=== PATIENT | male | born 1980 | race Caucasian/White ===

== ENCOUNTER 2018-08-21 16:18 | Inpatient (IN) | payer OTHER ==
[2018-08-21 21:51] VITALS: BMI 31.4
--- NOTE | 2018-08-21 22:10 | HP ---
"COWS - Scale Resting Pulse: 1= [place] 81-100 Sweatin= Beads of Sweat on Face Restless Observation: 0= Sits Still Pupil Size: 1= Pupils >than Normal Bone or Joint Aches: 4=Acute Joint/Muscle Pain Runny Nose/ Eye Tearin= Nasal Congestion GI Upset > 30mins: 2= Nausea/Diarrhea Tremor Observation: 1= Tremor Unity, Not Seen Yawning Observation: 0= None Anxiety or Irritability: 2=Irritable/Anxious Goose Flesh Skin: 0=Smooth Skin COWS Score: 15 CIWA Score Nausea/Vomitin-Mild Nausea/No Vomiting Muscle Tremors: 1-None Visible, but Unity Anxiety: 4-Mod. Anxious/Guarded Agitation: 1-Slight > Activity Paroxysmal Sweats: 4-Forehead w/Sweat Beads Orientation: 3-Disoriented Date>2 days Tacttile Disturbances: 0-None Auditory Disturbances: 0-None Visual Disturbances: 2-Mild Sensitivity Headache: 4-Moderately Severe CIWA-Ar Total Score: 20 - Admission Criteria OASAS Guidelines: Admission for Medically Managed Detox: Requires at least one of the followin. CIWA greater than 12 2. Seizures within the past 24 hours 3. Delirium tremens within the past 24 hours 4. Hallucinations within the past 24 hours 5. Acute intervention needed for co occurring medical disorder 6. Acute intervention needed for co occurring psychiatric disorder 7. Severe withdrawal that cannot be handled at a lower level of care (continued vomiting, continued diarrhea, abnormal vital signs) requiring intravenous medication and/or fluids 8. Patient presents the following: CIWA greater than 12 Admission Criteria Met: Admission criteria met Admission ROS [facility] Chief Complaint: c/o withdrawal sx's. seeking detox Allergies/Adverse Reactions: Allergies Allergy/AdvReac Type Severity Reaction Status Date / Time No Known Allergies Allergy Verified 08/21/18 21:44 History of Present Illness: 37 Y.O. WITH OPIOID AND ALCOHOL DEPENDENCE HERE FOR DETOX. CLIENT IS REFERRED BY [facility] AFTER HE AMA AFTER 1 DAY STAY. CLIENT REPORTS HE WAS ATTEMPTING DETOX FROM OPIOID WITH SUBOXONE OUTPATIENT BUT CONT TO HAVE MODERATE WITHDRAWAL SX'S AFTER 4 DAYS OF TAPER THAT ENDED ON 08/11/2018. HE ATTEMPTED DETOX AT [facility] WHERE HE WAS GIVEN A BENZO AND SUBOXONE FOR TXMENT BUT AMA AFTER A DAY, 2 DAYS AGO FOR PERSONAL REASONS. HE PRESENTS TODAY WITH COMPLAINTS OF WITHDRAWAL SX'S. COWS 15/CIWA 20. DENIES HX/O DRUG OVERDOSE, SEIZURES, AVH, SI/HI. LIVES IN A RESIDENTIAL, UNEMPLOYED, DENIES LEGALS This report was requested by: Chantal Wiseman | Reference #: [id number] You have not added a HIEN number. Keeping your HIEN number(s) up to date on the My HIEN Numbers page will enable the separation of your prescriptions from others ' in the search results. Others' Prescriptions Patient Name: Charlie Hewitt Date: 1980 Address: [address] [place] [address] [place] [address] Sex: Male Rx Written Rx Dispensed Drug Quantity Days Supply Prescriber Name 08/07/2018 08/07/2018 buprenorphine-naloxone 2-0.5 mg sl tablet 12 4 Rene Sanabria Exam Limitations: No Limitations - Ebola screening Have you traveled outside of the country in the last 21 days: No (N) Have you had contact with anyone from an Ebola affected area: No Do you have a fever: No - Review of Systems Constitutional: Chills, Malaise, Night Sweats, Changes in sleep EENT: reports: Dental Problems (MISSING TEETH/DENTURES), Other (CORRECTIVE LENSES) Respiratory: reports: No Symptoms reported Cardiac: reports: No Symptoms Reported GI: reports: Diarrhea, Nausea : reports: No Symptoms Reported Musculoskeletal: reports: Back Pain Integumentary: reports: Flushing, Sweating Neuro: reports: Headache, Tremors (FELT) Endocrine: reports: No Symptoms Reported Hematology: reports: No Symptoms Reported Psychiatric: reports: Anxious, Depressed Other Systems: Reviewed and Negative Patient History - Patient Medical History Hx Anemia: No Hx Asthma: No Hx Chronic Obstructive Pulmonary Disease (COPD): No Hx Cancer: No Hx Cardiac Disorders: No Hx Congestive Heart Failure: No Hx Hypertension: No Hx Hypercholesterolemia: No Hx Pacemaker: No HX Cerebrovascular Accident: No Hx Seizures: No Hx Dementia: No Hx Diabetes: No Hx Gastrointestinal Disorders: No Hx Liver Disease: No Hx Genitourinary Disorders: No Hx Sexually Transmitted Disorders: No Hx Renal Disease (ESRD): No Hx Thyroid Disease: No Hx Human Immunodeficiency Virus (HIV): No Hx Hepatitis C: No Hx Depression: Yes Hx Suicide Attempt: No Hx Bipolar Disorder: No Hx Schizophrenia: No Other Medical History: DENIES - Patient Surgical History Past Surgical History: No - PPD History Previous Implant?: Yes Documented Results: Negative w/proof Implanted On Prior [facility] Admission?: No PPD to be Administered?: Yes - Smoking Cessation Smoking history: Current every day smoker Have you smoked in the past 12 months: Yes Aproximately how many cigarettes per day: 10 Cigars Per Day: 0 Hx Chewing Tobacco Use: No Initiated information on smoking cessation: Yes 'Breaking Loose' booklet given: 08/21/18 - Substance & Tx. History Hx Alcohol Use: Yes Hx Substance Use: Yes Substance Use Type: Alcohol, Opiates Hx Substance Use Treatment: Yes ([facility]) - Substances abused Alcohol Substance route: Oral Frequency: Daily Amount used: 2 quarts vodka Age of first use: 17 Date of last use: 08/21/18 K2/Spice Substance route: Smoking Frequency: Daily Amount used: 5 joints Age of first use: 36 Date of last use: 08/21/18 Marijuana/Hashish Substance route: Smoking Frequency: Daily Amount used: 1 joint Age of first use: 17 Date of last use: 08/21/18 Buprenorphine Other (specify): STREET Substance route: Oral Frequency: 3-6 times per week Amount used: 8MG Age of first use: 27 Date of last use: 08/19/18 Family Disease History - Family Disease History Family History: Denies Admission Physical Exam [facility] - Vital Signs Vital Signs: Vital Signs - 24 hr 08/21/18 21:47 Temperature 97.7 F Pulse Rate 90 Respiratory 18 Rate Blood Pressure 143/90 - Physical General Appearance: Yes: Moderate Distress, Tremorous (felt), Sweating, Anxious HEENTM: Yes: EOMI, Normocephalic, Normal Voice, CHARY (pupils 4mm), Pharynx Normal Respiratory: Yes: Chest Non-Tender, Lungs Clear, Normal Breath Sounds, No Respiratory Distress, No Accessory Muscle Use Neck: Yes: No masses,lesions,Nodules, Supple, Trachea in good position Breast: Yes: Breast Exam Deferred Cardiology: Yes: Regular Rhythm, Regular Rate, S1, S2 Abdominal: Yes: Normal Bowel Sounds, Non Tender, Soft Genitourinary: Yes: Within Normal Limits Back: Yes: Normal Inspection Musculoskeletal: Yes: full range of Motion, Gait Steady Extremities: Yes: Tremors (felt), Other (solied finger nails and beds) Neurological: Yes: Alert, Motor Strength 5/5, Depressed Affect Integumentary: Yes: Clammy, Moist Lymphatic: Yes: Within Normal Limits - Diagnostic (1) Alcohol dependence with uncomplicated withdrawal Current Visit: Yes Status: Acute (2) Opioid dependence with withdrawal Current Visit: Yes Status: Acute (3) Cannabis dependence, uncomplicated Current Visit: Yes Status: Acute (4) Nicotine dependence Current Visit: Yes Status: Acute (5) Substance induced mood disorder Current Visit: Yes Status: Acute (6) Homeless Current Visit: Yes Status: Acute Cleared for Admission S - Detox or Rehab [facility] Level of Care: Medically Managed Detox Regimen/Protocol: Librium, Suboxone Claeared for Rehab Admission: No Breathalyzer - Breathalyzer Breathalyzer: 0 Urine Drug Screen - Test Device Lot number: [id number] Expiration date: 04/03/20 - Control Is test valid?: Yes - Results Drug screen NEGATIVE: No Urine drug screen results: THC-Marijuana, BZO-Benzodiazepines, BUP-Suboxone Inpatient Rehab Admission - Rehab Decision to Admit Inpatient rehab admission?: No"
[2018-08-21] MEDS ORDERED: MAGNESIUM CITRATE 300 ML BOTTLE PO PRN (22:16)
[2018-08-21] MEDS ORDERED: MAGNESIUM HYDROX 2400MG/30ML ORAL SUSPENSION 30 ML CUP PO PRN (22:16)
[2018-08-21] MEDS ORDERED: IBUPROFEN 400 MG TABLET (FP) PO PRN ×2 (22:16)
[2018-08-21] MEDS ORDERED: DICYCLOMINE HCL 10 MG CAPSULE PO PRN (22:16)
[2018-08-21] MEDS ORDERED: MENTHOL/PHENOL 1 EACH UD MM PRN (22:16)
[2018-08-21] MEDS ORDERED: ONDANSETRON *ODT* 4 MG TABLET SL PRN (22:16)
[2018-08-21] MEDS ORDERED: guaiFENesin 200 MG/10 ML 10 ML UNIT-DOSE CUPS PO PRN (22:16)
[2018-08-21] MEDS ORDERED: P-EPHED 60MG/TRIPROLIDI 2.5MG TABLET PO PRN (22:16)
[2018-08-21] MEDS ORDERED: MAG HYDROX/AL HYDROX/SIMETH 30 ML UNIT-DOSE CUP PO PRN (22:16)
[2018-08-21] MEDS ORDERED: ACETAMINOPHEN 325 MG TABLET (FP) PO PRN ×2 (22:16)
[2018-08-21] MEDS ORDERED: NICOTINE POLACRILEX 2 MG GUM BUC PRN (22:16)
[2018-08-21] MEDS ORDERED: BISMUTH SUBSALICYLATE 524 MG/30 ML UD PO PRN (22:16)
[2018-08-21] MEDS ORDERED: BUPRENORPHINE/NALOXONE 2 MG/0.5 MG FILM PACKET SL ONE (22:45)
[2018-08-21] MEDS: chlordiazePOXIDE HCL 25 MG CAPSULE PO SCH (22:58)
[2018-08-21] MEDS: MELATONIN 5 MG TABLETS PO PRN (22:59)
[2018-08-21] MEDS ORDERED: BUPRENORPHINE/NALOXONE 2 MG/0.5 MG FILM PACKET SL SCH (23:00)
[2018-08-22] MEDS: chlordiazePOXIDE HCL 25 MG CAPSULE PO SCH ×4 (05:37→22:33)
[2018-08-22] MEDS: BUPRENORPHINE/NALOXONE 2 MG/0.5 MG FILM PACKET SL SCH ×3 (05:37→22:33)
[2018-08-22] MEDS: PRENATAL VITAMINS W/ FOLIC ACID TABLET (FP) PO SCH (10:15)
[2018-08-22] MEDS: NICOTINE 21 MG/24 HOURS TOPICAL PATCH TD SCH (10:15)
[2018-08-22 10:16] LABS: HEMATOCRIT 37.1 % (35.4-49); HEMOGLOBIN 12.4 GM/dL (11.7-16.9); MCH 30.4 pg (25.7-33.7); MCHC 33.3 g/dl (32.0-35.9); MEAN CELL VOLUME 91.1 fl (80-96); MEAN PLT VOLUME 9.2 fl (7.5-11.1); PLATELET COUNT 210 K/MM3 (134-434); RBC 4.07 M/mm3 (4.00-5.60); WHITE BLOOD COUNT 6.5 K/mm3 (4.0-10.0)
[2018-08-22 10:27] LABS: ALBUMIN 3.4 g/dl (3.4-5.0); ALK PHOS 92 U/L (45-117); ANION GAP 7 MMOL/L (8-16); BILIRUBIN,TOTAL < 0.1 mg/dL (0.2-1); BLOOD UREA NITROGEN 13 mg/dL (7-18); CALCIUM 9.1 mg/dL (8.5-10.1); CHLORIDE 109 mmol/L (98-107); CO2 25 mmol/L (21-32); CREATININE 0.9 mg/dL (0.55-1.3); GLUCOSE,RANDOM 105 mg/dL (74-106); SGOT/AST 14 U/L (15-37); SGPT/ALT 25 U/L (13-61); SODIUM 140 mmol/L (136-145); TOT PROT 6.3 g/dl (6.4-8.2)
[2018-08-22] MEDS: METHOCARBAMOL 500 MG TABLET PO PRN ×2 (11:39→17:25)
[2018-08-22] MEDS: GABAPENTIN 300 MG CAPSULE (FP) PO SCH ×2 (13:05→22:32)
--- NOTE | 2018-08-22 13:45 | CONSULT ---
[facility] Psychiatric Consult - Data Date of interview: 08/22/18 Admission source: [facility] Identifying data: First admission to [facility] for this 37 y/o male referred from [facility] for detoxification (alcohol, marihuana (K2), street suboxone). Examined at [address] [place] [address]. Patient is single, a father of one, homeless, unemployed and supported by relatives. Substance Abuse History: Confirmed by the patient in this interview. Details in current [facility] report : Smoking history: Current every day smoker. Have you smoked in the past 12 months: Yes. Aproximately how many cigarettes per day: 10. Cigars Per Day: 0. Hx Chewing Tobacco Use: No. Initiated information on smoking cessation: Yes. 'Breaking Loose' booklet given: 08/21/18. - Substance & Tx. History. Hx Alcohol Use: Yes. Hx Substance Use: Yes. Substance Use Type : Alcohol, Opiates. Hx Substance Use Treatment: Yes ([facility]). - Substances abused. Alcohol. Substance route: Oral. Frequency: Daily. Amount used: 2 quarts vodka. Age of first use: 17. Date of last use: . K2/Spice. Substance route: Smoking. Frequency: Daily. Amount used: 5 joints. Age of first use: 36. Date of last use: 08/21/18. Marijuana/ Hashish. Substance route: Smoking. Frequency: Daily. Amount used: 1 joint. Age of first use: 17. Date of last use: 08/21/18. Buprenorphine. Other ( specify): STREET. Substance route: Oral. Frequency: 3-6 times per week. Amount used: 8MG. Age of first use: 27. Date of last use: 08/19/18 Medical History: Patient endorses good general health. Noted history of chronic lumbar pain. Psychiatric History: Patient admits to a history of two psychiatric hospitalizations ([facility]). Psychiatric disturbances started years ago (ADHD) but first psychiatric hospitalization occurred in 2013. Mr Hewitt endorses the diagnoses of MDD and Anxiety Disorder. Medications consist of wellbutrin XL (not found in reconciliation) + gabapentin + buspar + seroquel + trazodone (confirmed by pharmacy claims of 08/07/18 at [facility] # [id number]). These medications were prescribed to patient during his recent admission to the psychiatric inpatient service at [facility] (discharged two weeks ago). Patient has been referred to the [facility] clinic, in [place], for psychiatric OPD services. Denies history of suicide attempts. Physical/Sexual Abuse/Trauma History: Patient denies history of abuse. Additional Comment: Urine drug screen results: THC-Marijuana, BZO- Benzodiazepines, BUP-Suboxone. Noted. Mental Status Exam - Mental Status Exam Alert and Oriented to: Time, Place, Person Cognitive Function: Good Patient Appearance: Unkempt, Disheveled (overweight) Mood: Sad, Nervous, Withdrawn, Anxious Affect: Mood Congruent, Constricted Patient Behavior: Fatigued, Cooperative Speech Pattern: Clear Voice Loudness: Normal Thought Process: Goal Oriented Thought Disorder: Not Present Hallucinations: Denies Suicidal Ideation: Denies Homicidal Ideation: Denies Insight/Judgement: Poor Sleep: Poorly, Difficulty falling asleep Appetite: Good Muscle strength/Tone: Normal Gait/Station: Normal Psychiatric Findings - Problem List ([place] 1, 2,3) (1) Alcohol dependence with uncomplicated withdrawal Current Visit: Yes Status: Acute (2) Opioid dependence with withdrawal Current Visit: Yes Status: Acute (3) Cannabis dependence, uncomplicated Current Visit: Yes Status: Chronic (4) Nicotine dependence Current Visit: Yes Status: Chronic (5) Substance induced mood disorder Current Visit: Yes Status: Acute (6) History of depression Current Visit: Yes Status: Chronic (7) Insomnia Current Visit: Yes Status: Chronic (8) Non-compliance Current Visit: Yes Status: Chronic - Initial Treatment Plan Initial Treatment Plan: Psychoeducation. Sleep hygiene. Detoxification in progress. Support. Medications reconciled : trazodone 150 mg po hs + gabapentin 600 mg po tid. Side effects/benefits of these drugs are discussed with patient. Informed of risk of priapism, sedation, metabolic syndrome, involuntary movement disorders and orthostasis. Mr Hewitt gave his verbal consent for inclusion of these formulations in the current regimen. Observation.
[2018-08-22] MEDS ORDERED: PATIENT'S OWN MEDICATION (NON-FORMULARY) (Gabapentin [Gabapentin] 600 MG) PO SCH (14:00)
--- NOTE | 2018-08-22 14:28 | EKG ---
Test Reason : Blood Pressure : / mmHG Vent. Rate : 071 BPM Atrial Rate : 071 BPM P-R Int : 156 ms QRS Dur : 100 ms QT Int : 400 ms P-R-T Axes : 045 042 032 degrees QTc Int : 434 ms NORMAL SINUS RHYTHM NORMAL ECG NO PREVIOUS ECGS AVAILABLE Confirmed by MD AIDAN, JOEL ([id number]) on 08/22/2018 2:28:15 PM Referred By: Confirmed By:JOEL BERMUDEZ MD
[2018-08-22] MEDS: chlordiazePOXIDE HCL 25 MG CAPSULE PO PRN ×2 (15:15→19:46)
--- NOTE | 2018-08-22 16:51 | PN ---
S CIWA - CIWA Score Nausea/Vomitin Muscle Tremors: 3 Anxiety: 2 Agitation: 0-Normal Activity Paroxysmal Sweats: 3 Orientation: 0-Oriented Tacttile Disturbances: 0-None Auditory Disturbances: 0-None Visual Disturbances: 1-Very Mild Sensitivity Headache: 3-Moderate CIWA-Ar Total Score: 15 [facility] COWS - Scale Resting Pulse: 1= [place] 81-100 Sweatin= Chills/Flushing Restless Observation: 0= Sits Still Pupil Size: 0= Normal to Room Light Bone or Joint Aches: 2= Severe Diffuse Aches Runny Nose/ Eye Tearin= None GI Upset > 30mins: 2= Nausea/Diarrhea Tremor Observation of Outstretched Hands: 2= Slight Tremor Visible Yawning Observation: 1= 1-2x During Session Anxiety or Irritability: 2=Irritable/Anxious Goose Flesh Skin: 3=Piloe[place] COWS Score: 14 [facility] Progress Note (SOAP) Subjective: Sweating, H/A, Interrupted Sleep, Body Aches, Tremors, Nausea. Objective: PATIENT A & O X 3, OBSERVED AMBULATING ON UNIT UNASSISTED. IN NO ACUTE DISTRESS. 08/22/18 16:50 Vital Signs Temperature 97.2 F L 08/22/18 13:45 Pulse Rate 86 08/22/18 13:45 Respiratory Rate 18 08/22/18 13:45 Blood Pressure 126/85 08/22/18 13:45 O2 Sat by Pulse Oximetry (%) Laboratory Tests 08/22/18 08/22/18 07:48 07:48 WBC 6.5 RBC 4.07 Hgb 12.4 Hct 37.1 MCV 91.1 MCH 30.4 MCHC 33.3 RDW 13.0 Plt Count 210 MPV 9.2 Sodium 140 Potassium 4.0 Chloride 109 H Carbon Dioxide 25 Anion Gap 7 L BUN 13 Creatinine 0.9 Creat Clearance w eGFR 96.03 Random Glucose 105 Calcium 9.1 Total Bilirubin < 0.1 L AST 14 L ALT 25 Alkaline Phosphatase 92 Total Protein 6.3 L Albumin 3.4 LABS NOTED. RPR RESULT PENDING. 08/22/18 16:51 Assessment: 08/22/18 16:51 WITHDRAWAL SYMPTOMS. Plan: CONTINUE DETOX.
[2018-08-22] MEDS: hydrOXYzine PAMOATE 25 MG CAPSULE (FP) PO PRN ×2 (17:08→22:34)
[2018-08-22] MEDS ORDERED: THIAMINE HCL 100 MG TABLET (FP) PO SCH (22:00)
[2018-08-22] MEDS ORDERED: traZODone HCL 50 MG TABLET (FP) PO SCH (22:00)
[2018-08-22] MEDS: MELATONIN 5 MG TABLETS PO PRN (22:33)
[2018-08-23] MEDS: chlordiazePOXIDE HCL 25 MG CAPSULE PO SCH ×2 (05:49→10:09)
[2018-08-23] MEDS: GABAPENTIN 300 MG CAPSULE (FP) PO SCH (05:49)
[2018-08-23] MEDS ORDERED: BUPRENORPHINE/NALOXONE 2 MG/0.5 MG FILM PACKET SL SCH (06:00)
[2018-08-23] MEDS: hydrOXYzine PAMOATE 25 MG CAPSULE (FP) PO PRN (07:49)
[2018-08-23 09:12] VITALS: BP 137/93; PULSE 89; TEMP 96.8
[2018-08-23] MEDS: NICOTINE 21 MG/24 HOURS TOPICAL PATCH TD SCH (10:09)
[2018-08-23] MEDS: PRENATAL VITAMINS W/ FOLIC ACID TABLET (FP) PO SCH (10:09)
[2018-08-23] MEDS: METHOCARBAMOL 500 MG TABLET PO PRN (10:09)
[2018-08-23 10:12] LABS: URINE APPEARANCE CLEAR; URINE BILIRUBIN NEGATIVE (NEGATIVE); URINE COLOR YELLOW; URINE GLUCOSE (UA) NEGATIVE (NEGATIVE); URINE KETONE NEGATIVE (NEGATIVE); URINE LEUK ESTERASE NEGATIVE (NEGATIVE); URINE NITRITE NEGATIVE (NEGATIVE); URINE PROTEIN NEGATIVE (NEGATIVE); URINE UROBILINOGEN 0.2 mg/dL (0.2-1.0)
--- NOTE | 2018-08-23 11:28 | PN ---
[facility] CIWA - CIWA Score Nausea/Vomitin-Mild Nausea/No Vomiting Muscle Tremors: 4-Moderate,w/Arms Extend Anxiety: 2 Agitation: 3 Paroxysmal Sweats: 1-Minimal Palms Moist Orientation: 1-Uncertain about Date Tacttile Disturbances: 0-None Auditory Disturbances: 0-None Visual Disturbances: 0-None Headache: 0-None Present CIWA-Ar Total Score: 12 S COWS - Scale Resting Pulse: 1= [place] 81-100 Sweatin= Chills/Flushing Restless Observation: 0= Sits Still Pupil Size: 0= Normal to Room Light Bone or Joint Aches: 2= Severe Diffuse Aches Runny Nose/ Eye Tearin= Nasal Congestion GI Upset > 30mins: 2= Nausea/Diarrhea Tremor Observation of Outstretched Hands: 1= Tremor Alpha, Not Seen Yawning Observation: 1= 1-2x During Session Anxiety or Irritability: 2=Irritable/Anxious Goose Flesh Skin: 0=Smooth Skin COWS Score: 11 [facility] Progress Note (SOAP) Subjective: social with peers in day room discuss aftercare with staff tolerate food well Objective: 08/23/18 11:30 Vital Signs Temperature 96.8 F L 08/23/18 09:12 Pulse Rate 89 08/23/18 09:12 Respiratory Rate 18 08/23/18 09:12 Blood Pressure 137/93 08/23/18 09:12 O2 Sat by Pulse Oximetry (%) Laboratory Last Values WBC 6.5 K/mm3 (4.0-10.0) 08/22/18 07:48 RBC 4.07 M/mm3 (4.00-5.60) 08/22/18 07:48 Hgb 12.4 GM/dL (11.7-16.9) 08/22/18 07:48 Hct 37.1 % (35.4-49) 08/22/18 07:48 MCV 91.1 fl (80-96) 08/22/18 07:48 MCH 30.4 pg (25.7-33.7) 08/22/18 07:48 MCHC 33.3 g/dl (32.0-35.9) 08/22/18 07:48 RDW 13.0 % (11.9-15.9) 08/22/18 07:48 Plt Count 210 K/MM3 (134-434) 08/22/18 07:48 MPV 9.2 fl (7.5-11.1) 08/22/18 07:48 Sodium 140 mmol/L (136-145) 08/22/18 07:48 Potassium 4.0 mmol/L (3.5-5.1) 08/22/18 07:48 Chloride 109 mmol/L (98-107) H 08/22/18 07:48 Carbon Dioxide 25 mmol/L (21-32) 08/22/18 07:48 Anion Gap 7 MMOL/L (8-16) L 08/22/18 07:48 BUN 13 mg/dL (7-18) 08/22/18 07:48 Creatinine 0.9 mg/dL (0.55-1.3) 08/22/18 07:48 Creat Clearance w eGFR 96.03 (>60) 08/22/18 07:48 Random Glucose 105 mg/dL (74-106) 08/22/18 07:48 Calcium 9.1 mg/dL (8.5-10.1) 08/22/18 07:48 Total Bilirubin < 0.1 mg/dL (0.2-1) L 08/22/18 07:48 AST 14 U/L (15-37) L 08/22/18 07:48 ALT 25 U/L (13-61) 08/22/18 07:48 Alkaline Phosphatase 92 U/L (45-117) 08/22/18 07:48 Total Protein 6.3 g/dl (6.4-8.2) L 08/22/18 07:48 Albumin 3.4 g/dl (3.4-5.0) 08/22/18 07:48 Urine Color Yellow 08/23/18 07:40 Urine Appearance Clear 08/23/18 07:40 Urine pH 5.0 (5.0-8.0) 08/23/18 07:40 Ur Specific [place] 1.011 (1.010-1.035) 08/23/18 07:40 Urine Protein Negative (NEGATIVE) 08/23/18 07:40 Urine Glucose (UA) Negative (NEGATIVE) 08/23/18 07:40 Urine Ketones Negative (NEGATIVE) 08/23/18 07:40 Urine Blood Negative (NEGATIVE) 08/23/18 07:40 Urine Nitrite Negative (NEGATIVE) 08/23/18 07:40 Urine Bilirubin Negative (NEGATIVE) 08/23/18 07:40 Urine Urobilinogen 0.2 mg/dL (0.2-1.0) 08/23/18 07:40 Ur Leukocyte Esterase Negative (NEGATIVE) 08/23/18 07:40 RPR Titer Nonreactive (NONREACTIVE) 08/22/18 07:48 lab noted Assessment: 08/23/18 11:30 withdrawal sx Plan: continue detox
--- NOTE | 2018-08-23 12:23 | DS ---
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 encourage the patient to fetch the wellbutrin and may continue welbutrin patient refusing to fetch the bottle patient is alert no acute distress denies suicidal ideation Pertinent Past History: bring in medication list and lab report to aftercare appointment - Physical Exam Results Vital Signs: Vital Signs Temperature 96.8 F L 08/23/18 09:12 Pulse Rate 89 08/23/18 09:12 Respiratory Rate 18 08/23/18 09:12 Blood Pressure 137/93 08/23/18 09:12 O2 Sat by Pulse Oximetry (%) Pertinent Admission Physical Exam Findings: alcohol and opiate withdrwal sx Laboratory Last Values WBC 6.5 K/mm3 (4.0-10.0) 08/22/18 07:48 RBC 4.07 M/mm3 (4.00-5.60) 08/22/18 07:48 Hgb 12.4 GM/dL (11.7-16.9) 08/22/18 07:48 Hct 37.1 % (35.4-49) 08/22/18 07:48 MCV 91.1 fl (80-96) 08/22/18 07:48 MCH 30.4 pg (25.7-33.7) 08/22/18 07:48 MCHC 33.3 g/dl (32.0-35.9) 08/22/18 07:48 RDW 13.0 % (11.9-15.9) 08/22/18 07:48 Plt Count 210 K/MM3 (134-434) 08/22/18 07:48 MPV 9.2 fl (7.5-11.1) 08/22/18 07:48 Sodium 140 mmol/L (136-145) 08/22/18 07:48 Potassium 4.0 mmol/L (3.5-5.1) 08/22/18 07:48 Chloride 109 mmol/L (98-107) H 08/22/18 07:48 Carbon Dioxide 25 mmol/L (21-32) 08/22/18 07:48 Anion Gap 7 MMOL/L (8-16) L 08/22/18 07:48 BUN 13 mg/dL (7-18) 08/22/18 07:48 Creatinine 0.9 mg/dL (0.55-1.3) 08/22/18 07:48 Creat Clearance w eGFR 96.03 (>60) 08/22/18 07:48 Random Glucose 105 mg/dL (74-106) 08/22/18 07:48 Calcium 9.1 mg/dL (8.5-10.1) 08/22/18 07:48 Total Bilirubin < 0.1 mg/dL (0.2-1) L 08/22/18 07:48 AST 14 U/L (15-37) L 08/22/18 07:48 ALT 25 U/L (13-61) 08/22/18 07:48 Alkaline Phosphatase 92 U/L (45-117) 08/22/18 07:48 Total Protein 6.3 g/dl (6.4-8.2) L 08/22/18 07:48 Albumin 3.4 g/dl (3.4-5.0) 08/22/18 07:48 Urine Color Yellow 08/23/18 07:40 Urine Appearance Clear 08/23/18 07:40 Urine pH 5.0 (5.0-8.0) 08/23/18 07:40 Ur Specific [place] 1.011 (1.010-1.035) 08/23/18 07:40 Urine Protein Negative (NEGATIVE) 08/23/18 07:40 Urine Glucose (UA) Negative (NEGATIVE) 08/23/18 07:40 Urine Ketones Negative (NEGATIVE) 08/23/18 07:40 Urine Blood Negative (NEGATIVE) 08/23/18 07:40 Urine Nitrite Negative (NEGATIVE) 08/23/18 07:40 Urine Bilirubin Negative (NEGATIVE) 08/23/18 07:40 Urine Urobilinogen 0.2 mg/dL (0.2-1.0) 08/23/18 07:40 Ur Leukocyte Esterase Negative (NEGATIVE) 08/23/18 07:40 RPR Titer Nonreactive (NONREACTIVE) 08/22/18 07:48 lab noted - Treatment Hospital Course: Detox Protocol Followed, Detoxed Safely, Responded well, Discharged Condition Good, Rehab Referral Accepted Patient has Accepted a Rehab Referral to: as per counselor arrangement - Medication Discharge Medications: Ambulatory Orders Atomoxetine HCl [Strattera] 80 mg PO DAILY 08/21/18 Buprenorphine HCl/Naloxone HCl [Suboxone 8 mg-2 mg Sl Tablets] 1 each SL DAILY 08/21/18 Gabapentin 600 mg PO TID 08/21/18 Lurasidone HCl [Latuda] 60 mg PO DAILY 08/21/18 Trazodone HCl 150 mg PO HS 08/21/18 - Diagnosis (1) Alcohol dependence with uncomplicated withdrawal Status: Acute (2) Opioid dependence with withdrawal Status: Acute (3) Substance induced mood disorder Status: Suspected (4) Nicotine dependence Status: Acute Qualifiers: Nicotine product type: cigarettes Substance use status: in withdrawal Qualified Code(s): F17.213 - Nicotine dependence, cigarettes, with withdrawal - AMA Did Patient Leave Against Medical Advice: Yes
[2018-08-23] MEDS ORDERED: chlordiazePOXIDE HCL 10 MG CAPSULE PO PRN (23:00)
[2018-08-23] MEDS ORDERED: chlordiazePOXIDE HCL 10 MG CAPSULE PO SCH (23:00)
[2018-08-24] MEDS ORDERED: chlordiazePOXIDE HCL 10 MG CAPSULE PO SCH (23:00)
[2018-08-25] MEDS ORDERED: BUPRENORPHINE/NALOXONE 2 MG/0.5 MG FILM PACKET SL ONE (06:00)
== END 2018-08-23 12:01 | disposition left against medical advice (07) | DRG 770 ==
LOC: YASAS 16:18 → Y3N 22:08
PROVIDERS: ADMIT Surgery; ATTEND Surgery
PROC: HZ2ZZZZ Detoxification Services for Substance Abuse Treatment (ICD-10-PCS; principal; 2018-08-21)
DX: F11.23 Opioid dependence with withdrawal (principal); F10.230 Alcohol dependence with withdrawal, uncomplicated; F12.20 Cannabis dependence, uncomplicated; F17.213 Nicotine dependence, cigarettes, with withdrawal; F19.24 Other psychoactive substance dependence with psychoactive substance-induced mood disorder; G47.00 Insomnia, unspecified; Z91.19 Patient's noncompliance with other medical treatment and regimen; Z59.0 Homelessness
CPT/HCPCS: 36415; 80053; 81003; 85027; 86593; 93005; 93010

== ENCOUNTER 2022-06-15 12:51 | Inpatient (IN) | payer OTHER ==
[2022-06-15 12:58] VITALS: BMI 23.0
[2022-06-15] MEDS ORDERED: LOPERAMIDE HCL 2 MG CAPSULE PO PRN (13:58)
[2022-06-15] MEDS ORDERED: MAG HYDROX/AL HYDROX/SIMETH 30 ML UNIT-DOSE CUP PO PRN (13:58)
[2022-06-15] MEDS ORDERED: ONDANSETRON *ODT* 4 MG TABLET SL PRN (13:58)
[2022-06-15] MEDS ORDERED: ACETAMINOPHEN 325 MG TABLET (FP) PO PRN ×2 (13:58)
[2022-06-15] MEDS ORDERED: MAGNESIUM HYDROX 2400MG/30ML ORAL SUSPENSION 30 ML CUP PO PRN (13:58)
[2022-06-15] MEDS ORDERED: BENZOCAINE/MENTHOL (CHLORASEPTIC ) LOZENGE MM PRN (13:58)
[2022-06-15] MEDS ORDERED: IBUPROFEN 400 MG TABLET (FP) PO PRN (13:58)
[2022-06-15] MEDS ORDERED: BISMUTH SUBSALICYLATE 524 MG/30 ML PO PRN (13:58)
[2022-06-15] MEDS ORDERED: IBUPROFEN 600 MG TABLET (FP) PO PRN (13:58)
[2022-06-15] MEDS ORDERED: NALOXONE HCL (KLOXXADO) 8 MG SPRAY NS PRN (13:58)
[2022-06-15] MEDS ORDERED: POLYETHYLENE GLYCOL (HEALTHYLAX) 3350 17 GM PACKET PO PRN (13:58)
[2022-06-15] MEDS ORDERED: DICYCLOMINE HCL 10 MG CAPSULE PO PRN (13:58)
[2022-06-15] MEDS ORDERED: NICOTINE POLACRILEX 4 MG GUM BUC PRN (13:58)
[2022-06-15] MEDS: hydrOXYzine PAMOATE 25 MG CAPSULE (FP) PO PRN (15:21)
[2022-06-15] MEDS: METHOCARBAMOL 500 MG TABLET PO PRN ×2 (15:21→22:19)
[2022-06-15] MEDS: LORazepam 1 MG TABLET PO PRN (15:21)
[2022-06-15] MEDS: NICOTINE 10 MG CARTRIDGE (INHALER) IH PRN (15:25)
[2022-06-15] MEDS: LORazepam 2 MG TABLET PO SCH ×2 (18:05→22:21)
[2022-06-15] MEDS ORDERED: MELATONIN 5 MG TABLETS PO SCH (22:00)
[2022-06-15] MEDS: THIAMINE HCL 100 MG TABLET (FP) PO SCH (22:19)
[2022-06-15] MEDS: BUPRENORPHINE/NALOXONE 4 MG/1 MG FILM PACKET SL SCH (22:21)
[2022-06-15] MEDS ORDERED: cloNIDine HCL 0.1 MG TABLET PO ONE (23:33)
[2022-06-16] MEDS: LORazepam 2 MG TABLET PO SCH ×4 (05:36→22:18)
[2022-06-16] MEDS: PRENATAL VITAMINS W/ FOLIC ACID TABLET (FP) PO SCH (10:43)
[2022-06-16] MEDS: BUPRENORPHINE/NALOXONE 4 MG/1 MG FILM PACKET SL SCH ×2 (10:43→22:18)
[2022-06-16] MEDS: NICOTINE 21 MG/24 HOURS TOPICAL PATCH TD SCH (10:43)
[2022-06-16] MEDS: GABAPENTIN 100 MG CAPSULE PO SCH ×2 (10:48→22:17)
[2022-06-16] MEDS: busPIRone HCL 10 MG TABLET (FP) PO SCH ×2 (13:40→22:16)
[2022-06-16] MEDS: METHOCARBAMOL 500 MG TABLET PO PRN ×2 (14:10→22:17)
[2022-06-16] MEDS: LORazepam 1 MG TABLET PO PRN (20:52)
[2022-06-16] MEDS: hydrOXYzine PAMOATE 25 MG CAPSULE (FP) PO PRN (22:16)
[2022-06-16] MEDS: THIAMINE HCL 100 MG TABLET (FP) PO SCH (22:19)
[2022-06-17] MEDS: LORazepam 1 MG TABLET PO SCH ×2 (05:30→10:04)
[2022-06-17] MEDS: busPIRone HCL 10 MG TABLET (FP) PO SCH (05:31)
[2022-06-17 07:18] VITALS: RESP 16
[2022-06-17] MEDS: NICOTINE 10 MG CARTRIDGE (INHALER) IH PRN (08:48)
[2022-06-17 09:55] VITALS: BP 154/94; PULSE 79; TEMP 97.5
[2022-06-17] MEDS: PRENATAL VITAMINS W/ FOLIC ACID TABLET (FP) PO SCH (10:03)
[2022-06-17] MEDS: NICOTINE 21 MG/24 HOURS TOPICAL PATCH TD SCH (10:03)
[2022-06-17] MEDS: GABAPENTIN 100 MG CAPSULE PO SCH (10:04)
[2022-06-17] MEDS: BUPRENORPHINE/NALOXONE 4 MG/1 MG FILM PACKET SL SCH (10:05)
[2022-06-17] MEDS: LORazepam 1 MG TABLET PO PRN (12:11)
[2022-06-18] MEDS ORDERED: LORazepam 0.5 MG TABLET PO PRN
[2022-06-18] MEDS ORDERED: LORazepam 0.5 MG TABLET PO SCH (05:00)
[2022-06-19] MEDS ORDERED: LORazepam 0.5 MG TABLET PO ONE (05:00)
== END 2022-06-17 12:50 | disposition left against medical advice (07) | DRG 770 ==
LOC: YASAS 12:51 → Y3N 14:50
PROVIDERS: ADMIT Allergy & Immunology; ATTEND Surgery
PROC: HZ2ZZZZ Detoxification Services for Substance Abuse Treatment (ICD-10-PCS; principal; 2022-06-15)
DX: F11.23 Opioid dependence with withdrawal (principal); F10.230 Alcohol dependence with withdrawal, uncomplicated; F13.230 Sedative, hypnotic or anxiolytic dependence with withdrawal, uncomplicated; F14.20 Cocaine dependence, uncomplicated; F12.20 Cannabis dependence, uncomplicated; F17.210 Nicotine dependence, cigarettes, uncomplicated; F19.24 Other psychoactive substance dependence with psychoactive substance-induced mood disorder; F41.9 Anxiety disorder, unspecified; L03.114 Cellulitis of left upper limb; Z86.69 Personal history of other diseases of the nervous system and sense organs; Z86.59 Personal history of other mental and behavioral disorders; Z59.00 Homelessness unspecified; Z56.0 Unemployment, unspecified
CPT/HCPCS: 36415; 80053; 85025; 87811; 90715; 93005; 93010; J0875

== ENCOUNTER 2022-10-14 17:52 | Inpatient (IN) | payer OTHER ==
[2022-10-14 18:52] VITALS: BMI 21.3
[2022-10-14] MEDS ORDERED: chlordiazePOXIDE HCL 25 MG CAPSULE PO PRN (23:00)
[2022-10-14] MEDS ORDERED: methaDONE HCL 10 MG TABLET (FOR DETOX USE ONLY) PO ONE (23:30)
[2022-10-14] MEDS ORDERED: levETIRAcetam 500 MG TABLET (FP) PO ONE ×2 (23:31→23:34)
[2022-10-14] MEDS ORDERED: methaDONE HCL 10 MG TABLET (FOR DETOX USE ONLY) ONE (23:34)
[2022-10-14] MEDS ORDERED: chlordiazePOXIDE HCL 25 MG CAPSULE ONE (23:34)
[2022-10-14] MEDS ORDERED: cloNIDine HCL 0.1 MG TABLET ONE (23:34)
[2022-10-14] MEDS: cloNIDine HCL 0.1 MG TABLET PO PRN (23:35)
[2022-10-14] MEDS: chlordiazePOXIDE HCL 25 MG CAPSULE PO SCH (23:35)
[2022-10-14] MEDS ORDERED: NALOXONE HCL (KLOXXADO) 8 MG SPRAY NS PRN (23:42)
[2022-10-14] MEDS ORDERED: IBUPROFEN 600 MG TABLET (FP) PO PRN (23:42)
[2022-10-14] MEDS ORDERED: ONDANSETRON *ODT* 4 MG TABLET SL PRN (23:42)
[2022-10-14] MEDS ORDERED: NALOXONE HCL 0.4 MG/ML VIAL IM PRN (23:42)
[2022-10-14] MEDS ORDERED: ACETAMINOPHEN 325 MG TABLET (FP) PO PRN (23:42)
[2022-10-14] MEDS ORDERED: IBUPROFEN 400 MG TABLET (FP) PO PRN (23:42)
[2022-10-14] MEDS ORDERED: LOPERAMIDE HCL 2 MG CAPSULE PO PRN (23:42)
[2022-10-14] MEDS ORDERED: DICYCLOMINE HCL 10 MG CAPSULE PO PRN (23:42)
[2022-10-14] MEDS ORDERED: MAG HYDROX/AL HYDROX/SIMETH 30 ML UNIT-DOSE CUP PO PRN (23:42)
[2022-10-14] MEDS ORDERED: POLYETHYLENE GLYCOL (HEALTHYLAX) 3350 17 GM PACKET PO PRN (23:42)
[2022-10-14] MEDS ORDERED: BISMUTH SUBSALICYLATE 524 MG/30 ML PO PRN (23:42)
[2022-10-14] MEDS ORDERED: BENZONATATE 200 MG CAPSULE PO PRN (23:42)
[2022-10-14] MEDS ORDERED: NICOTINE POLACRILEX 2 MG GUM BUC PRN (23:42)
[2022-10-14] MEDS ORDERED: MELATONIN 5 MG TABLETS PO PRN (23:42)
[2022-10-14] MEDS ORDERED: MAGNESIUM HYDROX 2400MG/30ML ORAL SUSPENSION 30 ML CUP PO PRN (23:42)
[2022-10-14] MEDS ORDERED: P-EPHED 60MG/TRIPROLIDI 2.5MG TABLET PO PRN (23:42)
[2022-10-14] MEDS ORDERED: guaiFENesin 600 MG TABLET.ER (FP) PO PRN (23:42)
[2022-10-14] MEDS ORDERED: BENZOCAINE/MENTHOL (CHLORASEPTIC ) LOZENGE MM PRN (23:42)
[2022-10-14] MEDS ORDERED: NICOTINE 10 MG CARTRIDGE (INHALER) IH PRN (23:42)
[2022-10-15] MEDS: METHOCARBAMOL 500 MG TABLET PO PRN ×2 (01:10→22:14)
[2022-10-15] MEDS: hydrOXYzine PAMOATE 25 MG CAPSULE (FP) PO PRN ×2 (01:10→22:14)
[2022-10-15] MEDS: chlordiazePOXIDE HCL 25 MG CAPSULE PO SCH ×4 (06:00→22:15)
[2022-10-15] MEDS: PRENATAL VITAMINS W/ FOLIC ACID TABLET (FP) PO SCH (10:23)
[2022-10-15] MEDS: NICOTINE 14 MG/24 HOURS TOPICAL PATCH TD SCH (10:23)
[2022-10-15 13:27] LABS: HEMATOCRIT 36.9 % (35.4-49); HEMOGLOBIN 12.4 GM/dL (11.7-16.9); MCH 29.6 pg (25.7-33.7); MCHC 33.7 g/dl (32.0-35.9); MEAN CELL VOLUME 87.8 fl (80-96); MEAN PLT VOLUME 9.9 fl (7.5-11.1); PLATELET COUNT 186 10^3/uL (134-434); RBC 4.21 M/mm3 (4.00-5.60); RDW 14.2 % (11.9-15.9); WHITE BLOOD COUNT 4.9 K/mm3 (4.0-10.0)
[2022-10-15 15:24] LABS: POTASSIUM 4.3 mmol/L (3.5-5.1)
[2022-10-15 15:28] LABS: CALCIUM 8.7 mg/dL (8.5-10.1)
[2022-10-15 15:29] LABS: ALBUMIN 3.4 g/dl (3.4-5.0)
[2022-10-15 15:32] LABS: CREATININE 0.8 mg/dL (0.55-1.3)
[2022-10-15 15:34] LABS: BILIRUBIN,TOTAL 0.5 mg/dL (0.2-1)
[2022-10-15] MEDS: cloNIDine HCL 0.1 MG TABLET PO PRN ×2 (17:25→22:14)
[2022-10-15] MEDS ORDERED: THIAMINE HCL 100 MG TABLET (FP) PO SCH (22:00)
[2022-10-16] MEDS: chlordiazePOXIDE HCL 25 MG CAPSULE PO SCH ×2 (06:00→10:29)
[2022-10-16 06:17] VITALS: RESP 16
[2022-10-16 09:26] VITALS: PULSE 55; TEMP 97.7
[2022-10-16 09:27] VITALS: BP 167/108
[2022-10-16] MEDS ORDERED: methaDONE HCL 10 MG TABLET (FOR DETOX USE ONLY) PO ONE (10:00)
[2022-10-16] MEDS: NICOTINE 14 MG/24 HOURS TOPICAL PATCH TD SCH (10:27)
[2022-10-16] MEDS: PRENATAL VITAMINS W/ FOLIC ACID TABLET (FP) PO SCH (10:27)
[2022-10-17] MEDS ORDERED: chlordiazePOXIDE HCL 10 MG CAPSULE PO PRN
[2022-10-17] MEDS ORDERED: chlordiazePOXIDE HCL 10 MG CAPSULE PO SCH (05:00)
[2022-10-18] MEDS ORDERED: chlordiazePOXIDE HCL 10 MG CAPSULE PO SCH (05:00)
[2022-10-18] MEDS ORDERED: methaDONE HCL 10 MG TABLET (FOR DETOX USE ONLY) PO ONE (10:00)
[2022-10-19] MEDS ORDERED: chlordiazePOXIDE HCL 10 MG CAPSULE PO ONE (05:00)
== END 2022-10-16 11:31 | disposition left against medical advice (07) | DRG 770 ==
LOC: YASAS 17:52 → Y3N 23:51
PROVIDERS: ADMIT Allergy & Immunology; ATTEND Surgery
PROC: HZ2ZZZZ Detoxification Services for Substance Abuse Treatment (ICD-10-PCS; principal; 2022-10-14)
DX: F11.23 Opioid dependence with withdrawal (principal); F10.230 Alcohol dependence with withdrawal, uncomplicated; F14.20 Cocaine dependence, uncomplicated; F13.20 Sedative, hypnotic or anxiolytic dependence, uncomplicated; F12.20 Cannabis dependence, uncomplicated; F17.210 Nicotine dependence, cigarettes, uncomplicated; F41.9 Anxiety disorder, unspecified; F32.A Depression, unspecified; Z86.69 Personal history of other diseases of the nervous system and sense organs
CPT/HCPCS: 36415; 80053; 83036; 85027; 86780; 87635; 87811

== ENCOUNTER 2022-11-24 16:09 | Inpatient (IN) | payer OTHER ==
[2022-11-24 16:43] VITALS: BMI 20.9
[2022-11-24] MEDS ORDERED: NALOXONE HCL 0.4 MG/ML VIAL IM PRN (17:54)
[2022-11-24] MEDS ORDERED: IBUPROFEN 600 MG TABLET (FP) PO PRN (17:54)
[2022-11-24] MEDS ORDERED: DICYCLOMINE HCL 10 MG CAPSULE PO PRN (17:54)
[2022-11-24] MEDS ORDERED: LOPERAMIDE HCL 2 MG CAPSULE PO PRN (17:54)
[2022-11-24] MEDS ORDERED: MAGNESIUM HYDROX 2400MG/30ML ORAL SUSPENSION 30 ML CUP PO PRN (17:54)
[2022-11-24] MEDS ORDERED: IBUPROFEN 400 MG TABLET (FP) PO PRN (17:54)
[2022-11-24] MEDS ORDERED: ACETAMINOPHEN 325 MG TABLET (FP) PO PRN (17:54)
[2022-11-24] MEDS ORDERED: NALOXONE HCL (KLOXXADO) 8 MG SPRAY NS PRN (17:54)
[2022-11-24] MEDS ORDERED: BENZONATATE 200 MG CAPSULE PO PRN (17:54)
[2022-11-24] MEDS ORDERED: POLYETHYLENE GLYCOL (HEALTHYLAX) 3350 17 GM PACKET PO PRN (17:54)
[2022-11-24] MEDS ORDERED: MAG HYDROX/AL HYDROX/SIMETH 30 ML UNIT-DOSE CUP PO PRN (17:54)
[2022-11-24] MEDS ORDERED: BISMUTH SUBSALICYLATE 524 MG/30 ML PO PRN (17:54)
[2022-11-24] MEDS ORDERED: BENZOCAINE/MENTHOL (CHLORASEPTIC ) LOZENGE MM PRN (17:54)
[2022-11-24] MEDS ORDERED: ONDANSETRON *ODT* 4 MG TABLET SL PRN (17:54)
[2022-11-24] MEDS ORDERED: guaiFENesin 600 MG TABLET.ER (FP) PO PRN (17:54)
[2022-11-24] MEDS ORDERED: hydrOXYzine PAMOATE 25 MG CAPSULE (FP) PO ONE (18:03)
[2022-11-24] MEDS ORDERED: cloNIDine HCL 0.1 MG TABLET ONE (18:03)
[2022-11-24] MEDS: cloNIDine HCL 0.1 MG TABLET PO PRN (18:07)
[2022-11-24] MEDS: hydrOXYzine PAMOATE 25 MG CAPSULE (FP) PO PRN (18:07)
[2022-11-24] MEDS ORDERED: LISINOPRIL 20 MG TABLET PO ONE (21:07)
[2022-11-24] MEDS: METHOCARBAMOL 500 MG TABLET PO PRN (21:52)
[2022-11-24] MEDS: THIAMINE HCL 100 MG TABLET (FP) PO SCH (21:54)
[2022-11-24] MEDS ORDERED: MELATONIN 5 MG TABLETS PO SCH (22:00)
[2022-11-25] MEDS: hydrOXYzine PAMOATE 25 MG CAPSULE (FP) PO PRN (05:56)
[2022-11-25] MEDS: cloNIDine HCL 0.1 MG TABLET PO PRN ×3 (05:56→20:34)
[2022-11-25] MEDS: METHOCARBAMOL 500 MG TABLET PO PRN (05:56)
[2022-11-25] MEDS ORDERED: cloNIDine HCL 0.1 MG TABLET PO ONE (07:15)
[2022-11-25] MEDS ORDERED: methaDONE HCL 10 MG TABLET (FOR DETOX USE ONLY) PO ONE (09:02)
[2022-11-25] MEDS: PRENATAL VITAMINS W/ FOLIC ACID TABLET (FP) PO SCH (09:26)
[2022-11-25] MEDS: NICOTINE 21 MG/24 HOURS TOPICAL PATCH TD SCH (10:53)
[2022-11-25 11:41] LABS: POTASSIUM 4.2 mmol/L (3.5-5.1)
[2022-11-25 11:44] LABS: HEMATOCRIT 41.5 % (35.4-49); HEMOGLOBIN 13.4 GM/dL (11.7-16.9); MCH 29.3 pg (25.7-33.7); MCHC 32.4 g/dl (32.0-35.9); MEAN CELL VOLUME 90.3 fl (80-96); MEAN PLT VOLUME 10.5 fl (7.5-11.1); PLATELET COUNT 244 10^3/uL (134-434); RBC 4.59 M/mm3 (4.00-5.60); RDW 13.9 % (11.9-15.9); WHITE BLOOD COUNT 5.9 K/mm3 (4.0-10.0)
[2022-11-25 11:45] LABS: BLOOD UREA NITROGEN 13.7 mg/dL (7-18)
[2022-11-25 11:46] LABS: CALCIUM 9.2 mg/dL (8.5-10.1)
[2022-11-25 11:48] LABS: CREATININE 0.7 mg/dL (0.55-1.3)
[2022-11-25 11:50] LABS: BILIRUBIN,TOTAL 0.7 mg/dL (0.2-1); TOT PROT 7.2 g/dl (6.4-8.2)
[2022-11-25] MEDS: GABAPENTIN 300 MG CAPSULE PO SCH ×2 (13:53→22:04)
[2022-11-25] MEDS: diazePAM 5 MG TABLET PO PRN (21:15)
[2022-11-25] MEDS: traZODone HCL 50 MG TABLET (FP) PO SCH (22:06)
[2022-11-25] MEDS: THIAMINE HCL 100 MG TABLET (FP) PO SCH (22:15)
[2022-11-26] MEDS: GABAPENTIN 300 MG CAPSULE PO SCH ×3 (05:16→22:21)
[2022-11-26] MEDS: cloNIDine HCL 0.1 MG TABLET PO PRN ×2 (06:35→14:52)
[2022-11-26] MEDS: diazePAM 5 MG TABLET PO PRN ×2 (10:39→14:52)
[2022-11-26] MEDS: PRENATAL VITAMINS W/ FOLIC ACID TABLET (FP) PO SCH (10:39)
[2022-11-26] MEDS: hydrOXYzine PAMOATE 25 MG CAPSULE (FP) PO PRN (10:41)
[2022-11-26] MEDS: METHOCARBAMOL 500 MG TABLET PO PRN (10:41)
[2022-11-26] MEDS: NICOTINE 21 MG/24 HOURS TOPICAL PATCH TD SCH (10:43)
[2022-11-26] MEDS: THIAMINE HCL 100 MG TABLET (FP) PO SCH (22:21)
[2022-11-26] MEDS: traZODone HCL 50 MG TABLET (FP) PO SCH (22:21)
[2022-11-27] MEDS: GABAPENTIN 300 MG CAPSULE PO SCH ×2 (05:19→13:14)
[2022-11-27] MEDS: cloNIDine HCL 0.1 MG TABLET PO PRN ×2 (05:21→12:17)
[2022-11-27] MEDS: diazePAM 5 MG TABLET PO PRN ×2 (05:21→12:16)
[2022-11-27 06:09] VITALS: RESP 17
[2022-11-27] MEDS: PRENATAL VITAMINS W/ FOLIC ACID TABLET (FP) PO SCH (09:46)
[2022-11-27] MEDS: METHOCARBAMOL 500 MG TABLET PO PRN (09:46)
[2022-11-27] MEDS: hydrOXYzine PAMOATE 25 MG CAPSULE (FP) PO PRN (09:46)
[2022-11-27] MEDS: NICOTINE 21 MG/24 HOURS TOPICAL PATCH TD SCH (09:47)
[2022-11-27] MEDS ORDERED: methaDONE HCL 10 MG TABLET (FOR DETOX USE ONLY) PO ONE (10:00)
[2022-11-27] MEDS ORDERED: ACETAMINOPHEN 325 MG TABLET (FP) PO PRN (11:42)
[2022-11-27 12:40] VITALS: BP 147/86; PULSE 85; TEMP 98.4
[2022-11-29] MEDS ORDERED: methaDONE HCL 10 MG TABLET (FOR DETOX USE ONLY) PO ONE (10:00)
== END 2022-11-27 14:35 | disposition left against medical advice (07) | DRG 770 ==
LOC: YASAS 16:09 → Y6N 18:23
PROVIDERS: ADMIT Allergy & Immunology; ATTEND Surgery
PROC: HZ2ZZZZ Detoxification Services for Substance Abuse Treatment (ICD-10-PCS; principal; 2022-11-24)
DX: F11.23 Opioid dependence with withdrawal (principal); F10.230 Alcohol dependence with withdrawal, uncomplicated; F14.20 Cocaine dependence, uncomplicated; F13.20 Sedative, hypnotic or anxiolytic dependence, uncomplicated; F12.20 Cannabis dependence, uncomplicated; F17.210 Nicotine dependence, cigarettes, uncomplicated; F33.1 Major depressive disorder, recurrent, moderate; F19.282 Other psychoactive substance dependence with psychoactive substance-induced sleep disorder; F19.280 Other psychoactive substance dependence with psychoactive substance-induced anxiety disorder; F19.24 Other psychoactive substance dependence with psychoactive substance-induced mood disorder; F90.9 Attention-deficit hyperactivity disorder, unspecified type; G47.00 Insomnia, unspecified
CPT/HCPCS: 36415; 80053; 83036; 85027; 86780; 87635

== ENCOUNTER 2023-07-18 21:52 | Inpatient (IN) | payer OTHER ==
[2023-07-18 22:51] VITALS: BMI 15.5
[2023-07-18] MEDS ORDERED: NALOXONE HCL 0.4 MG/ML VIAL IM PRN (23:03)
[2023-07-18] MEDS ORDERED: BENZONATATE 200 MG CAPSULE PO PRN (23:03)
[2023-07-18] MEDS ORDERED: DICYCLOMINE HCL 10 MG CAPSULE PO PRN (23:03)
[2023-07-18] MEDS ORDERED: NICOTINE POLACRILEX 2 MG GUM BUC PRN (23:03)
[2023-07-18] MEDS ORDERED: BENZOCAINE/MENTHOL (CHLORASEPTIC ) LOZENGE MM PRN (23:03)
[2023-07-18] MEDS ORDERED: MAG HYDROX/AL HYDROX/SIMETH 30 ML UNIT-DOSE CUP PO PRN (23:03)
[2023-07-18] MEDS ORDERED: NALOXONE HCL (KLOXXADO) 8 MG SPRAY NS PRN (23:03)
[2023-07-18] MEDS ORDERED: IBUPROFEN 400 MG TABLET (FP) PO PRN (23:03)
[2023-07-18] MEDS ORDERED: P-EPHED 60MG/TRIPROLIDI 2.5MG TABLET PO PRN (23:03)
[2023-07-18] MEDS ORDERED: MAGNESIUM HYDROX 2400MG/30ML ORAL SUSPENSION 30 ML CUP PO PRN (23:03)
[2023-07-18] MEDS ORDERED: LOPERAMIDE HCL 2 MG CAPSULE PO PRN (23:03)
[2023-07-18] MEDS ORDERED: guaiFENesin 600 MG TABLET.ER (FP) PO PRN (23:03)
[2023-07-18] MEDS ORDERED: POLYETHYLENE GLYCOL (HEALTHYLAX) 3350 17 GM PACKET PO PRN (23:03)
[2023-07-18] MEDS ORDERED: chlordiazePOXIDE HCL 25 MG CAPSULE ONE (23:38)
[2023-07-19] MEDS: chlordiazePOXIDE HCL 25 MG CAPSULE PO SCH
[2023-07-19] MEDS ORDERED: cloNIDine HCL 0.1 MG TABLET ONE (00:31)
[2023-07-19] MEDS ORDERED: ACETAMINOPHEN 325 MG TABLET (FP) ONE (00:36)
[2023-07-19] MEDS: methaDONE HCL 10 MG TABLET (FOR DETOX USE ONLY) PO ONE (00:38)
[2023-07-19] MEDS: IBUPROFEN 600 MG TABLET (FP) PO PRN (02:05)
[2023-07-19] MEDS: METHOCARBAMOL 500 MG TABLET PO PRN (02:06)
[2023-07-19] MEDS: cloNIDine HCL 0.1 MG TABLET PO PRN (06:08)
[2023-07-19] MEDS: chlordiazePOXIDE HCL 25 MG CAPSULE PO PRN (07:43)
[2023-07-19] MEDS: PRENATAL VITAMINS W/ FOLIC ACID TABLET (FP) PO SCH (10:30)
[2023-07-19] MEDS: NICOTINE 14 MG/24 HOURS TOPICAL PATCH TD SCH (10:37)
[2023-07-19 12:48] LABS: BLOOD UREA NITROGEN 22.1 mg/dL (7-18); CALCIUM 8.7 mg/dL (8.5-10.1)
[2023-07-19 12:49] LABS: ALBUMIN 3.1 g/dl (3.4-5.0)
[2023-07-19 12:52] LABS: CREATININE 0.7 mg/dL (0.55-1.3)
[2023-07-19 12:54] LABS: BILIRUBIN,TOTAL 0.7 mg/dL (0.2-1); TOT PROT 6.8 g/dl (6.4-8.2)
[2023-07-19 13:04] LABS: HEMATOCRIT 40.2 % (35.4-49); HEMOGLOBIN 13.1 GM/dL (11.7-16.9); MCHC 32.5 g/dl (32.0-35.9); MEAN CELL VOLUME 89.3 fl (80-96); MEAN PLT VOLUME 9.8 fl (7.5-11.1); PLATELET COUNT 296 10^3/uL (134-434); RDW 15.5 % (11.9-15.9); WHITE BLOOD COUNT 27.5 K/mm3 (4.0-10.0)
[2023-07-19] MEDS: THIAMINE HCL 100 MG TABLET (FP) PO SCH (22:29)
[2023-07-19] MEDS: MELATONIN 5 MG TABLETS PO SCH (22:29)
[2023-07-20] MEDS: cloNIDine HCL 0.1 MG TABLET PO ONE (00:03)
[2023-07-20] MEDS: chlordiazePOXIDE HCL 25 MG CAPSULE PO SCH (05:37)
[2023-07-20] MEDS: amLODIPine BESYLATE 5 MG TABLET (FP) PO ONE (10:25)
[2023-07-20] MEDS: methaDONE HCL 10 MG TABLET (FOR DETOX USE ONLY) PO ONE (10:26)
[2023-07-20] MEDS: ACETAMINOPHEN 325 MG TABLET (FP) PO PRN (10:30)
[2023-07-20] MEDS: ONDANSETRON *ODT* 4 MG TABLET SL PRN (10:30)
[2023-07-20] MEDS ORDERED: diazePAM 5 MG TABLET PO PRN (16:39)
[2023-07-20] MEDS: BISMUTH SUBSALICYLATE 524 MG/30 ML PO PRN (17:03)
[2023-07-20] MEDS: diazePAM 5 MG TABLET PO SCH (17:03)
[2023-07-21] MEDS ORDERED: chlordiazePOXIDE HCL 10 MG CAPSULE PO PRN
[2023-07-21] MEDS ORDERED: chlordiazePOXIDE HCL 10 MG CAPSULE PO SCH (05:00)
[2023-07-21 06:08] VITALS: RESP 16
[2023-07-21 09:26] VITALS: PULSE 92; TEMP 98.6
[2023-07-21 09:28] VITALS: BP 160/110
[2023-07-21 10:08] LABS: BASO % 0.6 % (0-2.0); EOS % 1.1 % (0-4.5); HEMATOCRIT 39.3 % (35.4-49); HEMOGLOBIN 12.9 GM/dL (11.7-16.9); LYMPH % 16.2 % (8-40); MCH 29.5 pg (25.7-33.7); MCHC 32.8 g/dl (32.0-35.9); MEAN CELL VOLUME 89.8 fl (80-96); MEAN PLT VOLUME 9.1 fl (7.5-11.1); MONO % 8.8 % (3.8-10.2); NEUT % 73.3 % (42.8-82.8); PLATELET COUNT 272 10^3/uL (134-434); RBC 4.38 M/mm3 (4.00-5.60); RDW 14.9 % (11.9-15.9); WHITE BLOOD COUNT 10.2 K/mm3 (4.0-10.0)
[2023-07-22] MEDS ORDERED: chlordiazePOXIDE HCL 10 MG CAPSULE PO SCH (05:00)
[2023-07-22] MEDS ORDERED: diazePAM 5 MG TABLET PO SCH (06:00)
[2023-07-22] MEDS ORDERED: methaDONE HCL 10 MG TABLET (FOR DETOX USE ONLY) PO ONE (10:00)
[2023-07-23] MEDS ORDERED: chlordiazePOXIDE HCL 10 MG CAPSULE PO ONE (05:00)
[2023-07-23] MEDS ORDERED: diazePAM 5 MG TABLET PO ONE (06:00)
== END 2023-07-21 12:01 | disposition left against medical advice (07) | DRG 770 ==
LOC: YASAS 21:52 → Y3N 23:31
PROVIDERS: ADMIT Allergy & Immunology; ATTEND Surgery
PROC: HZ2ZZZZ Detoxification Services for Substance Abuse Treatment (ICD-10-PCS; principal; 2023-07-18)
DX: F11.23 Opioid dependence with withdrawal (principal); F10.230 Alcohol dependence with withdrawal, uncomplicated; F12.20 Cannabis dependence, uncomplicated; F17.210 Nicotine dependence, cigarettes, uncomplicated; F19.24 Other psychoactive substance dependence with psychoactive substance-induced mood disorder; F41.9 Anxiety disorder, unspecified; I10 Essential (primary) hypertension; Z86.59 Personal history of other mental and behavioral disorders; Z59.02 Unsheltered homelessness
CPT/HCPCS: 36415; 80053; 80305; 85025; 85027; 86780; 87635; 93005; 93010; Q0162